=== PATIENT | female | born 1985 | race American Indian/Alaskan Native ===

== ENCOUNTER 2017-11-06 18:23 | Emergency (ER) | payer SELFPAY ==
[2017-11-06 18:36] VITALS: BP 140/100
[2017-11-06 19:17] LABS: HCG Qualitative,Urine Negative (Negative)
--- NOTE | 2017-11-06 22:40 | Emergency Department Report ---
- General Chief Complaint: Upper Respiratory Infection Stated Complaint: FLU LIKE SYMPTOMS Time Seen by Provider: 11/06/17 22:07 Source: patient Mode of arrival: Ambulatory Limitations: No Limitations - History of Present Illness Initial Comments: 32-year-old female smoker presents with complaint of 2 days of nasal congestion and cough. Patient states she snores loudly. States that nasal congestion and cough is slightly worse at night. Denies chest pain palpitations or shortness of breath. Awake alert 3, accompanied by family member at bedside. Speaking in full sentences in no audible wheezing or stridor. States that she has slightly yellowish productive sputum with cough but mostly complaining of nasal congestion and nasal discharge. States nasal discharge is yellowish. MD Complaint: rhinorrhea, nasal congestion, sinus pain Onset/Timin -: days(s) Severity: moderate Quality: aching Consistency: intermittent Context: sick contacts Associated Symptoms: rhinorrhea, nasal congestion, sore throat, cough Treatments Prior to Arrival: none - Related Data Previous Rx's Medication Instructions Recorded Last Taken Type ALBUTEROL Inhaler [ProAir HFA 2 puff IH QID PRN #1 inhalation 11/06/17 Unknown Rx Inhaler] Amoxicillin [Trimox CAP] 500 mg PO Q8H #21 capsule 11/06/17 Unknown Rx Dextromethorphan Hb/Doxylamine 10 ml PO Q8H PRN #1 liquid 11/06/17 Unknown Rx [Safetussin Pm Liquid] Dextromethorphan/Benzocaine 1 each PO Q4H PRN #1 lozenge 11/06/17 Unknown Rx [Cepacol Sorethroat-Cough Kristina] Fluticasone [Flonase] 1 spray NS QDAY PRN #1 bottle 11/06/17 Unknown Rx Loratadine [Claritin] 10 mg PO DAILY #30 tablet 11/06/17 Unknown Rx Allergies Allergy/AdvReac Type Severity Reaction Status Date / Time No Known Allergies Allergy Unverified 11/06/17 18:36 ED Review of Systems ROS: Stated complaint: FLU LIKE SYMPTOMS Other details as noted in HPI Constitutional: denies: chills, fever Eyes: denies: eye pain, eye discharge, vision change ENT: as per HPI. denies: ear pain, throat pain Respiratory: denies: cough, shortness of breath, wheezing Cardiovascular: denies: chest pain, palpitations Endocrine: no symptoms reported Gastrointestinal: denies: abdominal pain, nausea, diarrhea Genitourinary: denies: urgency, dysuria, discharge Musculoskeletal: denies: back pain, joint swelling, arthralgia Skin: denies: rash, lesions Neurological: denies: headache, weakness, paresthesias Psychiatric: denies: anxiety, depression Hematological/Lymphatic: denies: easy bleeding, easy bruising ED Past Medical Hx - Past Medical History Previous Medical History?: No - Surgical History Past Surgical History?: No - Social History Smoking Status: Current Every Day Smoker Substance Use Type: None - Medications Home Medications: Home Medications Medication Instructions Recorded Confirmed Last Taken Type ALBUTEROL Inhaler [ProAir HFA 2 puff IH QID PRN #1 inhalation 11/06/17 Unknown Rx Inhaler] Amoxicillin [Trimox CAP] 500 mg PO Q8H #21 capsule 11/06/17 Unknown Rx Dextromethorphan Hb/Doxylamine 10 ml PO Q8H PRN #1 liquid 11/06/17 Unknown Rx [Safetussin Pm Liquid] Dextromethorphan/Benzocaine 1 each PO Q4H PRN #1 lozenge 11/06/17 Unknown Rx [Cepacol Sorethroat-Cough Kristina] Fluticasone [Flonase] 1 spray NS QDAY PRN #1 bottle 11/06/17 Unknown Rx Loratadine [Claritin] 10 mg PO DAILY #30 tablet 11/06/17 Unknown Rx ED Physical Exam - General Limitations: No Limitations General appearance: alert, in no apparent distress - Head Head exam: Present: atraumatic, normocephalic - Eye Eye exam: Present: normal appearance, PERRL, EOMI - ENT ENT exam: Present: mucous membranes moist - Neck Neck exam: Present: normal inspection - Respiratory Respiratory exam: Present: normal lung sounds bilaterally. Absent: respiratory distress - Cardiovascular Cardiovascular Exam: Present: regular rate, normal rhythm. Absent: systolic murmur, diastolic murmur, rubs, gallop - GI/Abdominal GI/Abdominal exam: Present: soft, normal bowel sounds - Extremities Exam Extremities exam: Present: normal inspection - Back Exam Back exam: Present: normal inspection - Neurological Exam Neurological exam: Present: alert, oriented X3 - Psychiatric Psychiatric exam: Present: normal affect, normal mood - Skin Skin exam: Present: warm, dry, intact, normal color. Absent: rash ED Course Vital Signs 11/06/17 18:33 Temperature 98.9 F Pulse Rate 84 Respiratory 18 Rate Blood Pressure 140/100 O2 Sat by Pulse 100 Oximetry ED Medical Decision Making - Medical Decision Making A/P: Sinusitis 1-Flonase, Claritin, Mucinex, inhaler, amoxicillin 2-follow-up with primary care 3-vital signs stable before discharge Critical care attestation.: If time is entered above; I have spent that time in minutes in the direct care of this critically ill patient, excluding procedure time. ED Disposition Clinical Impression: Acute frontal sinusitis Qualifiers: Recurrence: not specified as recurrent Qualified Code(s): J01.10 - Acute frontal sinusitis, unspecified Disposition: TO HOME OR SELFCARE Is pt being admited?: No Does the pt Need Aspirin: No Condition: Stable Instructions: Sinusitis (ED) Prescriptions: ALBUTEROL Inhaler [ProAir HFA Inhaler] 2 puff IH QID PRN #1 inhalation PRN Reason: Shortness Of Breath Amoxicillin [Trimox CAP] 500 mg PO Q8H #21 capsule Dextromethorphan Hb/Doxylamine [Safetussin Pm Liquid] 10 ml PO Q8H PRN #1 liquid PRN Reason: Cough Dextromethorphan/Benzocaine [Cepacol Sorethroat-Cough Kristina] 1 each PO Q4H PRN #1 lozenge PRN Reason: Sore Throat Fluticasone [Flonase] 1 spray NS QDAY PRN #1 bottle PRN Reason: Congestion Loratadine [Claritin] 10 mg PO DAILY #30 tablet Referrals: [facility] [Provider Group] - 3-5 Days Forms: Accompanied Note, Work/School Release Form(ED) Time of Disposition: 22:40
== END 2017-11-06 22:44 | disposition home or self-care (01) ==
LOC: ED 18:23
DX: J01.10 Acute frontal sinusitis, unspecified (principal); F17.200 Nicotine dependence, unspecified, uncomplicated
CPT/HCPCS: 81025; 99283